=== PATIENT | male | born 1965 | race Hispanic/Latino ===

== ENCOUNTER 2017-12-17 07:18 | Day surgery (SDC) | payer BC ==
[2017-12-17] MEDS ORDERED: Lactated Ringer's 500 ML IV ONE (07:32)
[2017-12-17 07:44] VITALS: TEMP 96.8
[2017-12-17] MEDS ORDERED: Propofol 10 mg/ml Inj (20 ML) ONE (07:57)
[2017-12-17 08:26] VITALS: RESP 15
[2017-12-17 08:42] VITALS: BP 122/59; PULSE 58; O2SAT 100
== END 2017-12-17 10:00 | disposition home or self-care (01) ==
LOC: H.ENDO 07:18
PROVIDERS: ATTEND Internal Medicine Gastroenterology
DX: Z12.11 Encounter for screening for malignant neoplasm of colon (principal); K64.0 First degree hemorrhoids
CPT/HCPCS: 45378; J2001; J2704; J7120